=== PATIENT | female | born 1995 | race Two or more races ===

== ENCOUNTER 2018-04-19 19:33 | Emergency (ER) | payer MEDICAID ==
[~2018-04-19] VITALS: Ht 175.3 cm; Wt 90.0 kg
--- NOTE | 2018-04-19 19:40 | NUR ---
NIL X 1 WHEN CALLED FOR TRIAGE.
[2018-04-19 19:51] VITALS: BP 142/88
--- NOTE | 2018-04-19 19:55 | NUR ---
C-COLLAR PLACED IN TRIAGE.
--- NOTE | 2018-04-19 21:54 | NUR ---
PT HERE FOR LOWER BACK PAIN AFTER FALL. PT DENIES LOSS OF BOWEL CONTROL. PT REPORTS NO LOSS OF LOC OR HEAD INJURY.
--- NOTE | 2018-04-19 21:55 | NUR ---
Patient/Caregiver given discharge instructions and they have confirmed that they understand the instructions. Patient ambulatory with steady gait.
== END 2018-04-19 21:56 | disposition home or self-care (01) ==
LOC: ED 21:50
DX: S16.1XXA Strain of muscle, fascia and tendon at neck level, initial encounter (principal); S00.33XA Contusion of nose, initial encounter; R51 Headache; W20.0XXA Struck by falling object in cave-in, initial encounter; Y93.89 Activity, other specified; Y92.009 Unspecified place in unspecified non-institutional (private) residence as the place of occurrence of the external cause; Y99.8 Other external cause status
CPT/HCPCS: 70160; 70450; 72125; 99284